=== PATIENT | male | born 1945 | race Caucasian/White ===

== ENCOUNTER 2016-12-30 16:16 | Inpatient (IN) | payer OTHER ==
--- NOTE | 2016-12-30 19:09 | HP ---
COWS - Scale Resting Pulse: 1= [place] 81-100 Sweatin=Flushed/Facial Moisture Restless Observation: 3= Extraneous Movement Pupil Size: 1= Pupils >than Normal Bone or Joint Aches: 2= Severe Diffuse Aches Runny Nose/ Eye Tearin= Nasal Congestion GI Upset > 30mins: 2= Nausea/Diarrhea Tremor Observation: 2= Slight Tremor Visible Yawning Observation: 0= None Anxiety or Irritability: 2=Irritable/Anxious Goose Flesh Skin: 3=Piloerection COWS Score: 19 CIWA Score - CIWA Score Nausea/Vomitin-Mild Nausea/No Vomiting Muscle Tremors: 4-Moderate,w/Arms Extend Anxiety: 4-Mod. Anxious/Guarded Agitation: 4-Moderately Restless Paroxysmal Sweats: 2 Orientation: 1-Uncertain about Date Tacttile Disturbances: 0-None Auditory Disturbances: 0-None Visual Disturbances: 0-None Headache: 3-Moderate CIWA-Ar Total Score: 19 Admission ROS BHS - HPI Chief Complaint: withdrawal sx Allergies/Adverse Reactions: Allergies Allergy/AdvReac Type Severity Reaction Status Date / Time No Known Allergies Allergy Verified 12/30/16 18:58 History of Present Illness: 71 years old male with long history of alcohol opiate nicotine dependence, has chronic pain of the neck surgically repaired 1984 denies mental illness is admitted to detox Exam Limitations: No Limitations - Ebola screening Have you traveled outside of the country in the last 21 days: No Have you had contact with anyone from an Ebola affected area: No Have you been sick,other than usual withdrawal symptoms: No Do you have a fever: No - Review of Systems Constitutional: Chills, Changes in sleep, Weight Stable EENT: reports: Dental Problems (upper and lower denture), Other (eye glasses) Respiratory: reports: No Symptoms reported Cardiac: reports: No Symptoms Reported GI: reports: Nausea, Poor Fluid Intake, Indigestion, Abdominal cramping : reports: No Symptoms Reported Musculoskeletal: reports: Back Pain, Joint Pain, Muscle Pain, Neck Pain Integumentary: reports: No Symptoms Reported Neuro: reports: Tremors Endocrine: reports: No Symptoms Reported Hematology: reports: No Symptoms Reported Psychiatric: reports: Judgement Intact, Mood/Affect Appropiate Other Systems: Reviewed and Negative Patient History - Patient Medical History Hx Anemia: No Hx Cancer: Yes (right lower lung 1984) Hx Cardiac Disorders: No Hx Congestive Heart Failure: No Hx Hypertension: No Hx Hypercholesterolemia: No Hx Pacemaker: No Hx Seizures: No Hx Dementia: No Hx Diabetes: No Hx Gastrointestinal Disorders: Yes Hx Liver Disease: No Hx Genitourinary Disorders: No Hx Sexually Transmitted Disorders: No Hx Renal Disease (ESRD): No Hx Hepatitis C: Yes Hx Depression: No Hx Suicide Attempt: No Hx Bipolar Disorder: No Hx Schizophrenia: No - Patient Surgical History Past Surgical History: Yes Hx Neurologic Surgery: Yes (cervical spine 1984) Hx Cataract Extraction: No Hx Cardiac Surgery: No Hx Lung Surgery: Yes (2014 right lower ) Hx Breast Surgery: No Hx Breast Biopsy: No Hx Abdominal Surgery: No Hx Appendectomy: No Hx Cholecystectomy: No Hx Genitourinary Surgery: No Hx Orthopedic Surgery: No Anesthesia Reaction: No - PPD History Previous Implant?: Yes Documented Results: Negative w/o proof Implanted On Prior R Admission?: No PPD to be Administered?: Yes - Smoking Cessation Smoking history: Current every day smoker Have you smoked in the past 12 months: Yes Aproximately how many cigarettes per day: 15 Cigars Per Day: 0 Hx Chewing Tobacco Use: No Initiated information on smoking cessation: Yes 'Breaking Loose' booklet given: 12/30/16 - Substance & Tx. History Hx Alcohol Use: Yes Hx Substance Use: Yes Substance Use Type: Alcohol, Opiates Hx Substance Use Treatment: Yes - Substances Abused Alcohol Route: Oral Frequency: Daily Amount used: beer- 2 six pack Age of first use: 16 Date of Last Use: 12/29/16 Heroin Route: Inhalation Frequency: Daily Amount used: 2 bags Age of first use: 39 Date of Last Use: 12/29/16 Family Disease History - Family Disease History Family Disease History: [place]: Mother (), Brother (), Other: Father () Admission Physical Exam BHS - Vital Signs Vital Signs: Vital Signs - 24 hr 12/30/16 17:49 Temperature 96.1 F L Pulse Rate 84 Respiratory 18 Rate Blood Pressure 155/79 - Physical General Appearance: Yes: Appropriately Dressed, Moderate Distress, Thin, Tremorous, Irritable, Sweating, Anxious HEENTM: Yes: Hearing grossly Normal, Normal ENT Inspection, Normocephalic, Normal Voice Respiratory: Yes: Chest Non-Tender, Lungs Clear, Normal Breath Sounds, Decreased Breath Sounds (right lower lob absent), No Respiratory Distress, No Accessory Muscle Use Neck: Yes: Supple, Trachea in good position Breast: Yes: Breasts Symetrical Cardiology: Yes: Regular Rhythm, Regular Rate, S1, S2 Abdominal: Yes: Non Tender, Soft Genitourinary: Yes: Within Normal Limits Back: Yes: Normal Inspection Musculoskeletal: Yes: full range of Motion, Gait Steady, Muscle Pain (lower cervical spine) Extremities: Yes: Normal Inspection, Normal Range of Motion, Non-Tender, Tremors Neurological: Yes: Alert, Motor Strength 5/5, Normal Mood/Affect, Normal Response Integumentary: Yes: Warm Lymphatic: Yes: Within Normal Limits - Diagnostic (1) Alcohol dependence with uncomplicated withdrawal Current Visit: Yes Status: Acute (2) Opioid dependence with withdrawal Current Visit: Yes Status: Acute (3) GERD (gastroesophageal reflux disease) Current Visit: Yes Status: Acute Qualifiers: Esophagitis presence: without esophagitis Qualified Code(s): K21.9 - Gastro-esophageal reflux disease without esophagitis (4) Hepatitis C Current Visit: Yes Status: Resolved Qualifiers: Viral hepatitis chronicity: chronic Hepatic coma status: without hepatic coma Qualified Code(s): B18.2 - Chronic viral hepatitis C Comment: treated (5) S/P cervical discectomy Current Visit: Yes Status: Resolved Comment: chronic pain cervical spine Cleared for Admission [facility] - Detox or Rehab [facility] Level of Care: Medically Managed Detox Regimen/Protocol: Methadone/Librium [facility] Breath Alcohol Content Breath Alcohol Content: 0 Urine Drug Screen - Results Drug Screen Negative: No Urine Drug Screen Results: OPI-Opiates, OXY-Oxycodone
[2016-12-30] MEDS ORDERED: MAG HYDROX/AL HYDROX/SIMETH 30 ML UNIT-DOSE CUP PO PRN (19:17)
[2016-12-30] MEDS ORDERED: P-EPHED 60MG/TRIPROLIDI 2.5MG TABLET PO PRN (19:17)
[2016-12-30] MEDS ORDERED: METHADONE HCL 10 MG TABLET (FOR DETOX USE ONLY) PO ONE ×2 (19:17→23:00)
[2016-12-30] MEDS ORDERED: MAGNESIUM CITRATE 300 ML BOTTLE PO PRN (19:17)
[2016-12-30] MEDS ORDERED: MENTHOL/PHENOL 1 EACH UD MM PRN (19:17)
[2016-12-30] MEDS ORDERED: MAGNESIUM HYDROX 2400MG/30ML ORAL SUSPENSION 30 ML CUP PO PRN (19:17)
[2016-12-30] MEDS ORDERED: ACETAMINOPHEN 325 MG TABLET (FP) PO PRN (19:17)
[2016-12-30] MEDS ORDERED: chlordiazePOXIDE HCL 25 MG CAPSULE PO PRN (19:17)
[2016-12-30] MEDS ORDERED: LOPERAMIDE HCL 2 MG CAPSULE PO PRN (19:17)
[2016-12-30] MEDS ORDERED: guaiFENesin/D-METHORPHAN HB 10 ML UNIT-DOSE CUPS PO PRN (19:17)
[2016-12-30] MEDS ORDERED: NICOTINE POLACRILEX 2 MG GUM BC PRN (19:17)
[2016-12-30] MEDS ORDERED: diphenhydrAMINE HCL 50 MG CAPSULE PO PRN (19:17)
[2016-12-30] MEDS ORDERED: cloNIDine HCL 0.1 MG TABLET PO PRN (19:20)
[2016-12-30] MEDS ORDERED: CYCLOBENZAPRINE HCL 10 MG TABLET (FP) PO PRN (19:20)
[2016-12-30] MEDS ORDERED: ALBUTEROL SO4 6.7 GM HFA INHALER IH PRN (19:25)
[2016-12-30] MEDS: chlordiazePOXIDE HCL 25 MG CAPSULE PO SCH (22:37)
[2016-12-30] MEDS: THIAMINE HCL 100 MG TABLET (FP) PO SCH (22:37)
[2016-12-30 22:57] LABS: URINE APPEARANCE CLEAR; URINE BILIRUBIN NEGATIVE (NEGATIVE); URINE COLOR STRAW; URINE GLUCOSE (UA) NEGATIVE (NEGATIVE); URINE KETONE NEGATIVE (NEGATIVE); URINE LEUK ESTERASE NEGATIVE (NEGATIVE); URINE NITRITE NEGATIVE (NEGATIVE); URINE PROTEIN NEGATIVE (NEGATIVE); URINE UROBILINOGEN NEGATIVE E.U./dl (0.2-1.0)
[2016-12-30 22:58] LABS: URINE BLOOD 1+ (NEGATIVE)
[2016-12-30 23:09] LABS: URINE MUCUS RARE; URINE RBC 2 /hpf (0-3); URINE WBC 1 /hpf (3-5)
[2016-12-31] MEDS: NAPROXEN 500 MG TABLET (FP) PO SCH ×3 (00:04→22:29)
[2016-12-31] MEDS: RANITIDINE HCL 150 MG TABLET (FP) PO SCH ×3 (00:07→22:29)
[2016-12-31] MEDS: chlordiazePOXIDE HCL 25 MG CAPSULE PO SCH ×4 (06:15→22:29)
[2016-12-31] MEDS ORDERED: METHADONE HCL 10 MG TABLET (FOR DETOX USE ONLY) PO SCH (10:00)
[2016-12-31] MEDS ORDERED: LIDOCAINE 5% TOPICAL PATCH TP SCH (10:00)
[2016-12-31 10:09] LABS: MCH 31.8 pg (25.7-33.7); MCHC 33.7 g/dl (32.0-35.9); MEAN CELL VOLUME 94.4 fl (80-96); MEAN PLT VOLUME 8.9 fl (7.5-11.1); PLATELET COUNT 205 K/MM3 (134-434); RDW 12.4 % (11.9-15.9); WHITE BLOOD COUNT 9.1 K/mm3 (4.0-10.0)
[2016-12-31 10:19] LABS: ALBUMIN 4.5 g/dl (3.4-5.0); CALCIUM 9.6 mg/dL (8.5-10.1)
[2016-12-31 10:24] LABS: ALK PHOS 77 U/L (45-117); ANION GAP 8 (8-16); BILIRUBIN,TOTAL 1.1 mg/dL (0.2-1.0); CO2 30 mmol/L (21-32); CREATININE 0.9 mg/dL (0.7-1.3); GLUCOSE,RANDOM 83 mg/dL (74-106); SGOT/AST 21 U/L (15-37); SGPT/ALT 31 U/L (12-78); TOT PROT 7.6 g/dl (6.4-8.2)
[2016-12-31] MEDS: NICOTINE 21 MG/24 HOURS TOPICAL PATCH TD SCH (10:29)
[2016-12-31] MEDS: PRENATAL VITAMINS W/ FOLIC ACID TABLET (FP) PO SCH (10:29)
[2016-12-31] MEDS: LIDOCAINE 5% TOPICAL PATCH TP SCH (10:31)
[2016-12-31 11:26] LABS: HIV 1 & 2 AB NEGATIVE; HIV 1 AGp24 NEGATIVE
--- NOTE | 2016-12-31 11:40 | PN ---
[facility] CIWA - CIWA Score Nausea/Vomitin-No Nausea/No Vomiting Muscle Tremors: 4-Moderate,w/Arms Extend Anxiety: 3 Agitation: 3 Paroxysmal Sweats: 3 Orientation: 0-Oriented Tacttile Disturbances: 0-None Auditory Disturbances: 0-None Visual Disturbances: 0-None Headache: 0-None Present CIWA-Ar Total Score: 13 BHS COWS - Scale Resting Pulse: 1= [place] 81-100 Sweatin=Flushed/Facial Moisture Restless Observation: 1= Difficult to Sit Still Pupil Size: 0= Normal to Room Light Bone or Joint Aches: 1= Mild Discomfort Runny Nose/ Eye Tearin= Nasal Congestion GI Upset > 30mins: 0= None Tremor Observation of Outstretched Hands: 2= Slight Tremor Visible Yawning Observation: 2= >3x During Session Anxiety or Irritability: 2=Irritable/Anxious Goose Flesh Skin: 0=Smooth Skin COWS Score: 12 BHS Progress Note (SOAP) Subjective: agitation anxiety sweats interrupted sleep irritable Objective: 12/31/16 11:36 Vital Signs Temperature 97.2 F L 12/31/16 10:21 Pulse Rate 82 12/31/16 10:21 Respiratory Rate 18 12/31/16 10:21 Blood Pressure 103/62 12/31/16 10:21 O2 Sat by Pulse Oximetry (%) Laboratory Tests 12/30/16 12/31/16 12/31/16 21:00 07:00 07:00 WBC 9.1 RBC 4.35 Hgb 13.8 Hct 41.1 MCV 94.4 MCHC 33.7 RDW 12.4 Plt Count 205 MPV 8.9 Sodium Potassium Chloride Carbon Dioxide Anion Gap BUN Creatinine Creat Clearance w eGFR Random Glucose Calcium Total Bilirubin AST ALT Alkaline Phosphatase Total Protein Albumin Urine Color Straw Urine Appearance Clear Urine pH 6.0 Ur Specific [place] 1.006 Urine Protein Negative Urine Glucose (UA) Negative Urine Ketones Negative Urine Blood 1+ H Urine Nitrite Negative Urine Bilirubin Negative Urine Urobilinogen Negative Ur Leukocyte Esterase Negative Urine RBC 2 Urine WBC 1 Urine Mucus Rare HIV 1&2 Antibody Screen Negative HIV P24 Antigen Negative 12/31/16 07:00 WBC RBC Hgb Hct MCV MCHC RDW Plt Count MPV Sodium 143 Potassium 4.1 Chloride 105 Carbon Dioxide 30 Anion Gap 8 BUN 17 Creatinine 0.9 Creat Clearance w eGFR > 60 Random Glucose 83 Calcium 9.6 Total Bilirubin 1.1 H AST 21 ALT 31 Alkaline Phosphatase 77 Total Protein 7.6 Albumin 4.5 Urine Color Urine Appearance Urine pH Ur Specific [place] Urine Protein Urine Glucose (UA) Urine Ketones Urine Blood Urine Nitrite Urine Bilirubin Urine Urobilinogen Ur Leukocyte Esterase Urine RBC Urine WBC Urine Mucus HIV 1&2 Antibody Screen HIV P24 Antigen awake/alert ambulating no acute distress Assessment: 12/31/16 11:37 withdrawal sx Plan: continue detox increase fluids
--- NOTE | 2016-12-31 12:28 | EKG ---
Test Reason : Blood Pressure : / mmHG Vent. Rate : 081 BPM Atrial Rate : 081 BPM P-R Int : 156 ms QRS Dur : 078 ms QT Int : 364 ms P-R-T Axes : 081 077 074 degrees QTc Int : 422 ms NORMAL SINUS RHYTHM NORMAL ECG NO PREVIOUS ECGS AVAILABLE Confirmed by DESHAWN JANE, GRAYSON ([id number]) on 12/31/2016 12:28:18 PM Referred By: Confirmed By:GRAYSON HESS MD
[2016-12-31] MEDS: THIAMINE HCL 100 MG TABLET (FP) PO SCH (22:28)
[2017-01-01] MEDS: chlordiazePOXIDE HCL 25 MG CAPSULE PO SCH ×3 (05:36→17:35)
[2017-01-01] MEDS: RANITIDINE HCL 150 MG TABLET (FP) PO SCH ×2 (10:34→22:56)
[2017-01-01] MEDS: PRENATAL VITAMINS W/ FOLIC ACID TABLET (FP) PO SCH (10:34)
[2017-01-01] MEDS: NICOTINE 21 MG/24 HOURS TOPICAL PATCH TD SCH (10:35)
[2017-01-01] MEDS: METHADONE HCL 5 MG TABLET (FOR DETOX USE ONLY) PO SCH (10:37)
[2017-01-01] MEDS: NAPROXEN 500 MG TABLET (FP) PO SCH ×2 (10:37→22:56)
[2017-01-01] MEDS: LIDOCAINE 5% TOPICAL PATCH TP SCH (10:39)
--- NOTE | 2017-01-01 13:58 | PN ---
S CIWA - CIWA Score Nausea/Vomitin Muscle Tremors: 2 Anxiety: 3 Agitation: 2 Paroxysmal Sweats: 3 Orientation: 0-Oriented Tacttile Disturbances: 1-Very Mild Itch/Numbness Auditory Disturbances: 0-None Visual Disturbances: 0-None Headache: 0-None Present CIWA-Ar Total Score: 13 BHS COWS - Scale Resting Pulse: 0= [place] 80 or Below Sweatin=Flushed/Facial Moisture Restless Observation: 1= Difficult to Sit Still Pupil Size: 1= Pupils >than Normal Bone or Joint Aches: 1= Mild Discomfort Runny Nose/ Eye Tearin= Nasal Congestion GI Upset > 30mins: 1= Stomach Cramp Tremor Observation of Outstretched Hands: 1= Tremor [place], Not Seen Yawning Observation: 0= None Anxiety or Irritability: 1=Feels Anxious/Irritable Goose Flesh Skin: 0=Smooth Skin COWS Score: 9 BHS Progress Note (SOAP) Subjective: interrupted sleep, sweats Objective: 01/01/17 13:57 Vital Signs Temperature 96.8 F L 01/01/17 09:41 Pulse Rate 76 01/01/17 09:41 Respiratory Rate 18 01/01/17 09:41 Blood Pressure 130/72 01/01/17 09:41 O2 Sat by Pulse Oximetry (%) Laboratory Tests 12/30/16 12/31/16 12/31/16 21:00 07:00 07:00 WBC 9.1 RBC 4.35 Hgb 13.8 Hct 41.1 MCV 94.4 MCHC 33.7 RDW 12.4 Plt Count 205 MPV 8.9 Sodium Potassium Chloride Carbon Dioxide Anion Gap BUN Creatinine Creat Clearance w eGFR Random Glucose Calcium Total Bilirubin AST ALT Alkaline Phosphatase Total Protein Albumin Urine Color Straw Urine Appearance Clear Urine pH 6.0 Ur Specific [place] 1.006 Urine Protein Negative Urine Glucose (UA) Negative Urine Ketones Negative Urine Blood 1+ H Urine Nitrite Negative Urine Bilirubin Negative Urine Urobilinogen Negative Ur Leukocyte Esterase Negative Urine RBC 2 Urine WBC 1 Urine Mucus Rare RPR Titer HIV 1&2 Antibody Screen Negative HIV P24 Antigen Negative 12/31/16 12/31/16 07:00 07:00 WBC RBC Hgb Hct MCV MCHC RDW Plt Count MPV Sodium 143 Potassium 4.1 Chloride 105 Carbon Dioxide 30 Anion Gap 8 BUN 17 Creatinine 0.9 Creat Clearance w eGFR > 60 Random Glucose 83 Calcium 9.6 Total Bilirubin 1.1 H AST 21 ALT 31 Alkaline Phosphatase 77 Total Protein 7.6 Albumin 4.5 Urine Color Urine Appearance Urine pH Ur Specific [place] Urine Protein Urine Glucose (UA) Urine Ketones Urine Blood Urine Nitrite Urine Bilirubin Urine Urobilinogen Ur Leukocyte Esterase Urine RBC Urine WBC Urine Mucus RPR Titer Nonreactive HIV 1&2 Antibody Screen HIV P24 Antigen pt aox3 in nad ambulating Assessment: 01/01/17 13:57 withdrawl sx;s Plan: cont. detox increase fluids
[2017-01-01] MEDS: THIAMINE HCL 100 MG TABLET (FP) PO SCH (22:55)
[2017-01-01] MEDS: chlordiazePOXIDE 5 MG CAPSULE PO SCH (22:56)
[2017-01-02] MEDS: chlordiazePOXIDE 5 MG CAPSULE PO SCH ×3 (06:12→17:23)
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
[2017-01-02] MEDS: NAPROXEN 500 MG TABLET (FP) PO SCH ×2 (11:06→22:46)
[2017-01-02] MEDS: METHADONE HCL 5 MG TABLET (FOR DETOX USE ONLY) PO SCH (11:06)
[2017-01-02] MEDS: PRENATAL VITAMINS W/ FOLIC ACID TABLET (FP) PO SCH (11:06)
[2017-01-02] MEDS: RANITIDINE HCL 150 MG TABLET (FP) PO SCH ×2 (11:07→22:46)
[2017-01-02] MEDS: LIDOCAINE 5% TOPICAL PATCH TP SCH (11:08)
[2017-01-02] MEDS: NICOTINE 21 MG/24 HOURS TOPICAL PATCH TD SCH (11:09)
[2017-01-02] MEDS: BACITRACIN 30 GM TUBE TOPICAL OINTMENT TP SCH (12:16)
--- NOTE | 2017-01-02 17:11 | PN ---
BHS Progress Note (SOAP) Subjective: Sweating, Body Aches. Objective: PT. A & O X 2 (DISORIENTED TO LOCATION). PT. OBSERVED AMBULATING ON UNIT. 01/02/17 17:07 Vital Signs Temperature 96.6 F L 01/02/17 16:25 Pulse Rate 74 01/02/17 16:25 Respiratory Rate 18 01/02/17 16:25 Blood Pressure 126/73 01/02/17 16:25 O2 Sat by Pulse Oximetry (%) Laboratory Last Values WBC 9.1 K/mm3 (4.0-10.0) 12/31/16 07:00 RBC 4.35 M/mm3 (4.00-5.60) 12/31/16 07:00 Hgb 13.8 GM/dL (11.7-16.9) 12/31/16 07:00 Hct 41.1 % (35.4-49) 12/31/16 07:00 MCV 94.4 fl (80-96) 12/31/16 07:00 MCHC 33.7 g/dl (32.0-35.9) 12/31/16 07:00 RDW 12.4 % (11.9-15.9) 12/31/16 07:00 Plt Count 205 K/MM3 (134-434) 12/31/16 07:00 MPV 8.9 fl (7.5-11.1) 12/31/16 07:00 Sodium 143 mmol/L (136-145) 12/31/16 07:00 Potassium 4.1 mmol/L (3.5-5.1) 12/31/16 07:00 Chloride 105 mmol/L (98-107) 12/31/16 07:00 Carbon Dioxide 30 mmol/L (21-32) 12/31/16 07:00 Anion Gap 8 (8-16) 12/31/16 07:00 BUN 17 mg/dL (7-18) 12/31/16 07:00 Creatinine 0.9 mg/dL (0.7-1.3) 12/31/16 07:00 Creat Clearance w eGFR > 60 (>60) 12/31/16 07:00 Random Glucose 83 mg/dL (74-106) 12/31/16 07:00 Calcium 9.6 mg/dL (8.5-10.1) 12/31/16 07:00 Total Bilirubin 1.1 mg/dL (0.2-1.0) H 12/31/16 07:00 AST 21 U/L (15-37) 12/31/16 07:00 ALT 31 U/L (12-78) 12/31/16 07:00 Alkaline Phosphatase 77 U/L (45-117) 12/31/16 07:00 Total Protein 7.6 g/dl (6.4-8.2) 12/31/16 07:00 Albumin 4.5 g/dl (3.4-5.0) 12/31/16 07:00 Urine Color Straw 12/30/16 21:00 Urine Appearance Clear 12/30/16 21:00 Urine pH 6.0 (5.0-8.0) 12/30/16 21:00 Ur Specific [place] 1.006 (1.001-1.035) 12/30/16 21:00 Urine Protein Negative (NEGATIVE) 12/30/16 21:00 Urine Glucose (UA) Negative (NEGATIVE) 12/30/16 21:00 Urine Ketones Negative (NEGATIVE) 12/30/16 21:00 Urine Blood 1+ (NEGATIVE) H 12/30/16 21:00 Urine Nitrite Negative (NEGATIVE) 12/30/16 21:00 Urine Bilirubin Negative (NEGATIVE) 12/30/16 21:00 Urine Urobilinogen Negative E.U./dl (0.2-1.0) 12/30/16 21:00 Ur Leukocyte Esterase Negative (NEGATIVE) 12/30/16 21:00 Urine RBC 2 /hpf (0-3) 12/30/16 21:00 Urine WBC 1 /hpf (3-5) 12/30/16 21:00 Urine Mucus Rare 12/30/16 21:00 RPR Titer Nonreactive (NONREACTIVE) 12/31/16 07:00 HIV 1&2 Antibody Screen Negative 12/31/16 07:00 HIV P24 Antigen Negative 12/31/16 07:00 LABS NOTED. RESULTS OF CXR DONE TODAY NOTED AND REVIEWED. Assessment: 01/02/17 17:08 WITHDRAWAL SYMPTOMS. Plan: CONTINUE DETOX. ADVISED PT. TO FOLLOW-UP WITH [facility] / REHAB MEDICAL PROVIDER AFTER DISCHARGE FROM DETOX FOR GENERAL MEDICAL ASSESSMENT, ABNORMAL LAB VALUES, AND FOR ABNORMAL CXR RESULT. DR. PAULETTE MD CONSULTED ON THIS MATTER.
[2017-01-02] MEDS: chlordiazePOXIDE HCL 10 MG CAPSULE PO SCH (22:46)
[2017-01-02] MEDS: THIAMINE HCL 100 MG TABLET (FP) PO SCH (22:46)
[2017-01-03] MEDS: chlordiazePOXIDE HCL 10 MG CAPSULE PO SCH ×3 (06:00→21:18)
[2017-01-03] MEDS ORDERED: METHADONE HCL 10 MG TABLET (FOR DETOX USE ONLY) PO SCH (10:00)
[2017-01-03] MEDS: NAPROXEN 500 MG TABLET (FP) PO SCH ×2 (11:08→22:53)
[2017-01-03] MEDS: RANITIDINE HCL 150 MG TABLET (FP) PO SCH ×2 (11:08→22:53)
[2017-01-03] MEDS: PRENATAL VITAMINS W/ FOLIC ACID TABLET (FP) PO SCH (11:08)
[2017-01-03] MEDS: NICOTINE 21 MG/24 HOURS TOPICAL PATCH TD SCH (11:38)
[2017-01-03] MEDS: LIDOCAINE 5% TOPICAL PATCH TP SCH (11:38)
[2017-01-03] MEDS: BACITRACIN 30 GM TUBE TOPICAL OINTMENT TP SCH (11:38)
--- NOTE | 2017-01-03 13:42 | PN ---
S Progress Note (SOAP) Subjective: ALERT,IRRITABLE,ANXIOUS,INTERRUPTED SLEEP Objective: 01/03/17 13:41 Vital Signs Temperature 96.3 F L 01/03/17 10:32 Pulse Rate 78 01/03/17 10:32 Respiratory Rate 20 01/03/17 10:32 Blood Pressure 118/72 01/03/17 10:32 O2 Sat by Pulse Oximetry (%) Assessment: 01/03/17 13:41 WITHDRAWAL SYMPTOM Plan: CONTINUE DETOX
[2017-01-03] MEDS: THIAMINE HCL 100 MG TABLET (FP) PO SCH (22:53)
[2017-01-04] MEDS ORDERED: METHADONE HCL 5 MG TABLET (FOR DETOX USE ONLY) PO SCH (06:00)
--- NOTE | 2017-01-04 09:24 | PN ---
S Progress Note (SOAP) Subjective: alert,no complaint Objective: 01/04/17 09:23 Vital Signs Temperature 98.4 F 01/04/17 07:32 Pulse Rate 80 01/04/17 07:32 Respiratory Rate 18 01/04/17 07:32 Blood Pressure 138/62 01/04/17 07:32 O2 Sat by Pulse Oximetry (%) Assessment: 01/04/17 09:23 detox completed,no withdrawal symptom Plan: discharge today,follow up with after care program as arrangement
--- NOTE | 2017-01-04 09:27 | DS ---
[facility] Detox Discharge Summary Admission Date: 12/30/16 Discharge Date: 01/04/17 - History Present History: Alcohol Dependence, Opioid Dependence Additional Comments: follow up with after care program as arrangement Pertinent Past History: gerd hepatitis c s/p cervical dissectomy - Physical Exam Results Vital Signs: Vital Signs Temperature 98.4 F 01/04/17 07:32 Pulse Rate 80 01/04/17 07:32 Respiratory Rate 18 01/04/17 07:32 Blood Pressure 138/62 01/04/17 07:32 O2 Sat by Pulse Oximetry (%) Pertinent Admission Physical Exam Findings: withdrawal symptom - Treatment Hospital Course: Detox Protocol Followed, Detoxed Safely, Responded well, Discharged Condition Good, Rehab Referral Accepted ([facility]) Patient has Accepted a Rehab Referral to: [facility] - Medication Discharge Medications: Ambulatory Orders NK [No Known Home Medication] 12/30/16 - AMA Did Patient Leave Against Medical Advice: No
[2017-01-04 09:42] VITALS: BP 117/71; PULSE 79; TEMP 95.2
[2017-01-04] MEDS: NAPROXEN 500 MG TABLET (FP) PO SCH (11:04)
[2017-01-04] MEDS: BACITRACIN 30 GM TUBE TOPICAL OINTMENT TP SCH (11:04)
[2017-01-04] MEDS: LIDOCAINE 5% TOPICAL PATCH TP SCH (11:04)
[2017-01-04] MEDS: NICOTINE 21 MG/24 HOURS TOPICAL PATCH TD SCH (11:07)
[2017-01-04] MEDS: PRENATAL VITAMINS W/ FOLIC ACID TABLET (FP) PO SCH (11:07)
[2017-01-04] MEDS: RANITIDINE HCL 150 MG TABLET (FP) PO SCH (11:08)
== END 2017-01-04 09:52 | disposition home or self-care (01) | DRG 773 ==
LOC: YASAS 16:16 → Y6N 19:25
PROVIDERS: ADMIT Internal Medicine Addiction Medicine; ATTEND Internal Medicine Addiction Medicine
PROC: HZ2ZZZZ Detoxification Services for Substance Abuse Treatment (ICD-10-PCS; principal; 2017-01-04)
DX: F11.23 Opioid dependence with withdrawal (principal); F10.230 Alcohol dependence with withdrawal, uncomplicated; B18.2 Chronic viral hepatitis C; K21.9 Gastro-esophageal reflux disease without esophagitis; G89.28 Other chronic postprocedural pain
CPT/HCPCS: 36415; 71020-TC; 80053; 81003; 81015; 85027; 86593; 87389; 93005; 93010